=== PATIENT | female | born 1980 | race African-American/Black ===

== ENCOUNTER 2020-01-01 07:26 | Emergency (ER) | payer OTHER ==
[~2020-01-01] VITALS: Ht 165.1 cm; Wt 90.0 kg
[2020-01-01] MEDS ORDERED: PREN-183 PO (07:31)
[2020-01-01] MEDS ORDERED: ACETAMINOPHEN 325MG TABLET PO PRN (08:00)
[2020-01-01 08:09] LABS: BASOPHILS % 0.3 % (0.0-2.0); EOSINOPHILS % 4.2 % (0.0-5.0); HEMATOCRIT. 34.7 % (36.0-48.0); HEMOGLOBIN. 11.5 g/dL (12.0-16.0); LYMPHOCYTES % 25.2 % (20.0-50.0); MEAN CORPUSCULAR HEMOGLOBIN 27.6 pg (28.0-32.0); MEAN CORPUSCULAR VOLUME 83.4 fL (81.0-99.0); MEAN PLATELET VOLUME 8.6 fl (7.4-10.4); MONOCYTES % 9.9 % (2.0-8.0); NEUTROPHILS % 60.4 % (40.0-76.0); PLATELET 323 x1000/uL (130-400); RED BLOOD CELL COUNT 4.16 mill/uL (4.2-5.4); RED CELL DISTRIBUTION WIDTH 15.5 % (11.6-14.6)
[2020-01-01 08:16] LABS: CHLORIDE 106 mEq/L (98-107)
[2020-01-01 08:18] LABS: INR 0.9; PARTIAL THROMBOPLASTIN TIME 27.4 sec (23.4-31.0)
[2020-01-01 08:39] LABS: CLARITY URINE CLOUDY (CLEAR); COLOR URINE YELLOW (YELLOW); KETONES URINE TRACE (NEGATIVE); LEUKOCYTE ESTERASE URINE 1+ (NEGATIVE); NITRITE URINE NEGATIVE (NEGATIVE); OCCULT BLOOD URINE NEGATIVE (NEGATIVE); PROTEIN URINE NEGATIVE (NEGATIVE); SPECIFIC GRAVITY URINE 1.016 (1.005-1.030); UROBILINOGEN URINE 0.2 E.U./dL (0.2-1.0)
[2020-01-01 08:51] LABS: B-HCG QUANTITATIVE 12267 mIU/mL (<3)
[2020-01-01 10:01] VITALS: BP 169/83
== END 2020-01-01 10:04 | disposition home or self-care (01) ==
LOC: ER 07:47
DX: O99.413 Diseases of the circulatory system complicating pregnancy, third trimester (principal); R07.89 Other chest pain; O23.43 Unspecified infection of urinary tract in pregnancy, third trimester; I10 Essential (primary) hypertension; Z3A.33 33 weeks gestation of pregnancy
CPT/HCPCS: 36415; 76805; 76818; 80053; 81003; 84702; 85025; 93005; 93970; 99285